=== PATIENT | male | born 1965 | race Caucasian/White ===

== ENCOUNTER 2018-01-28 18:27 | Emergency (ER) | payer MEDICAID ==
[2018-01-28] MEDS ORDERED: NS 1,000 ML IV ONE (18:34)
--- NOTE | 2018-01-28 18:43 | EDPHY ---
H & P Time Seen by Provider: 01/28/18 18:34 HPI/ROS: HPI Lower abdominal pain. 52-year-old male. By ambulance. Homeless. [facility] way [facility] bed. Developed left lower quadrant abdominal pain described as sharp and aching about 1 hr prior to arrival. It has since improved but he still states that is present at a lower level. Some radiation of the pain into his left groin area. No history of trauma. Denies any urinary complaints. No fever. He has had no associated nausea or vomiting. No diarrhea. No bloody or melenic stool. Last bowel movement was yesterday. ROS: Constitutional: No fever, no chills. No weakness. Eyes: No discharge. No changes in vision. ENT: No sore throat. No nasal congestion or rhinorrhea. Respiratory: No cough. No shortness of breath. Cardiac: No chest pain, no palpitations. Gastrointestinal: As above. Genitourinary: No hematuria. No dysuria or increased frequency with urination. No testicular pain. Musculoskeletal: No back pain. No neck pain. No myalgias or arthralgias. Skin: No rashes. Neurological: No headache. No focal weakness or altered sensation. Past medical history: Ulcerative colitis, alcohol abuse, methamphetamine abuse , homeless. Social history: As above. Smoker. Physical Exam: General Appearance: Alert, he is not in distress. This patient is responding to questions appropriately and in full sentences. This patient appears well- hydrated and well-nourished. Eyes: Pupils equal and round no pallor or injection. No lid edema, erythema or injection. Respiratory: There are no retractions, lungs are clear to auscultation with good air movement bilaterally. Cardiovascular: Regular rate and rhythm. No murmur. Gastrointestinal: Abdomen is soft with mild to moderate left lower quadrant tenderness on palpation, no masses, bowel sounds normal. No focal tenderness at McBurney's point. No Leyva sign. Neurological: Motor sensory function is grossly intact. Cranial nerves are normal. Gait is normal. Skin: Warm and dry, no rashes. Musculoskeletal: Neck is supple and nontender. Extremities are symmetrical. All joints range without pain or impingement. Psychiatric: No agitation. No depression. Database: EKG: Imaging: CT scan of abdomen and pelvis with IV contrast: Constipation. Otherwise negative study. No evidence of diverticulitis. No evidence of ureteral stone or hydronephrosis hydroureter. Results were discussed with staff radiologist Dr. Gato Archer. Procedures: Emergency department course: Triage vital signs reviewed. He is moderately hypertensive. Vital signs are otherwise normal. IV was placed by EMS. He was started on IV normal saline once here. I do not feel he requires pain medication at this time. CT imaging to evaluate for diverticulitis will be obtained. Blood in urine work ordered. 8:50 p.m., the patient is feeling better. Repeat abdominal exam is soft, nontender nondistended. I discussed the results of his blood work, urinalysis and CT scan. His urinalysis did show some blood and a few white cells. He may have had a small ureteral stone that has passed and we do not detect on CT imaging. His vital signs have remained stable throughout his emergency department course. He feels comfortable being discharged. [facility]. Follow-up and return to emergency department precautions reviewed with him. All of his questions were answered. He was discharged from the emergency department in good condition. Differential Diagnosis: The differential diagnosis on this patient includes but is not limited to diverticulitis, constipation, colitis. Ureterolithiasis, urinary tract infection, volvulus, testicular torsion unlikely. This represents a partial list of diagnoses considered. These considerations are based on history, physical exam, past history, reassessment and diagnostic testing. Smoking Status: Current every day smoker Constitutional: Initial Vital Signs Temperature (C) 36.9 C 01/28/18 18:33 Heart Rate 56 L 01/28/18 18:33 Respiratory Rate 16 01/28/18 18:33 Blood Pressure 139/93 H 01/28/18 18:33 O2 Sat (%) 97 01/28/18 18:33 O2 Delivery Mode Room Air Allergies/Adverse Reactions: No Known Allergies Allergy (Unverified 01/28/18 18:36) Home Medications: Medication Instructions Recorded NK [No Known Home Meds] 01/28/18 Medical Decision Making - Data Points Laboratory Results: Laboratory Results 01/28/18 18:30 01/28/18 18:30 01/28/18 01/28/18 01/28/18 20:05 18:30 18:30 WBC 7.60 10^3/uL 10^3/uL (3.80-9.50) RBC 4.76 10^6/uL 10^6/uL (4.40-6.38) Hgb 14.9 g/dL g/dL (13.7-17.5) Hct 44.1 % % (40.0-51.0) MCV 92.6 fL fL (81.5-99.8) MCH 31.3 pg pg (27.9-34.1) MCHC 33.8 g/dL g/dL (32.4-36.7) RDW 11.9 % % (11.5-15.2) Plt Count 234 10^3/uL 10^3/uL (150-400) MPV 9.4 fL fL (8.7-11.7) Neut % (Auto) 72.9 % % (39.3-74.2) Lymph % (Auto) 17.1 % % (15.0-45.0) [place] % (Auto) 7.4 % % (4.5-13.0) Eos % (Auto) 1.8 % % (0.6-7.6) Baso % (Auto) 0.5 % % (0.3-1.7) Nucleat RBC Rel Count 0.0 % % (0.0-0.2) Absolute Neuts (auto) 5.54 10^3/uL 10^3/uL (1.70-6.50) Absolute Lymphs (auto) 1.30 10^3/uL 10^3/uL (1.00-3.00) Absolute Monos (auto) 0.56 10^3/uL 10^3/uL (0.30-0.80) Absolute Eos (auto) 0.14 10^3/uL 10^3/uL (0.03-0.40) Absolute Basos (auto) 0.04 10^3/uL 10^3/uL (0.02-0.10) Absolute Nucleated RBC 0.00 10^3/uL 10^3/uL (0-0.01) Immature Gran % 0.3 % % (0.0-1.1) Immature Gran # 0.02 10^3/uL 10^3/uL (0.00-0.10) Sodium 136 mEq/L mEq/L (135-145) Potassium 4.4 mEq/L mEq/L (3.3-5.0) Chloride 107 mEq/L mEq/L (97-110) Carbon Dioxide 21 mEq/l L mEq/l (22-31) Anion Gap 8 mEq/L mEq/L (6-14) BUN 19 mg/dL mg/dL (7-23) Creatinine 0.9 mg/dL mg/dL (0.7-1.3) Estimated GFR > 60 Glucose 91 mg/dL mg/dL (70-100) Calcium 9.3 mg/dL mg/dL (8.5-10.4) Urine Color YELLOW Urine Appearance CLEAR Urine pH 6.0 (5.0-7.5) Ur Specific [place] 1.013 (1.002-1.030) Urine Protein NEGATIVE (NEGATIVE) Urine Ketones NEGATIVE (NEGATIVE) Urine Blood 3+ H (NEGATIVE) Urine Nitrate NEGATIVE (NEGATIVE) Urine Bilirubin NEGATIVE (NEGATIVE) Urine Urobilinogen NEGATIVE EU EU (0.2-1.0) Ur Leukocyte Esterase NEGATIVE (NEGATIVE) Urine RBC 50-182 /hpf H /hpf (0-3) Urine WBC 3-5 /hpf H /hpf (0-3) Ur Epithelial Cells TRACE /lpf /lpf (NONE-1+) Urine Bacteria TRACE /hpf H /hpf (NONE SEEN) Urine Mucus TRACE /lpf /lpf (NONE-1+) Urine Glucose NEGATIVE (NEGATIVE) Medications Given: Discontinued Medications Sodium Chloride (Ns) 1,000 mls @ 0 mls/hr IV EDNOW ONE; Wide Open PRN Reason: Protocol Stop: 01/28/18 18:35 Last Admin: 01/28/18 18:37 Dose: 1,000 mls Departure - Departure Disposition: Home, Routine, Self-Care Clinical Impression: Lower abdominal pain, Hematuria Condition: Good Instructions: Abdominal Pain (ED) Additional Instructions: Read and follow provided instructions. Follow-up with your primary care physician in 1-2 days for re-evaluation. Take medication as prescribed for nausea. You may have had a small kidney stone that has passed. Keep yourself well hydrated. Return to the emergency department for worsening symptoms or other serious concerns. Referrals: Patient,NotPresent [Unknown] - As per Instructions
[2018-01-28 18:48] LABS: PLATELET COUNT 234 10^3/uL (150-400)
[2018-01-28] MEDS ORDERED: IOPAMIDOL (ISOVUE-300) 100 ML BTL ONE (19:04)
[2018-01-28] MEDS ORDERED: ONDANSETRON 4MG PREPACK#2 BTL TAKEHOME ONE (20:52)
[2018-01-28 21:05] VITALS: BP 120/70
== END 2018-01-28 21:05 | disposition home or self-care (01) ==
LOC: EDUNIT#
DX: R10.30 Lower abdominal pain, unspecified (principal); R31.9 Hematuria, unspecified
CPT/HCPCS: Q9967

== ENCOUNTER 2018-07-14 02:48 | Emergency (ER) | payer MEDICAID ==
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
[2018-07-14] MEDS ORDERED: IBUPROFEN 800 MG TAB PO ONE (02:59)
[2018-07-14] MEDS ORDERED: ACETAMINOPHEN 500 MG TAB PO ONE (02:59)
[2018-07-14] MEDS ORDERED: AMOXICILLIN/CLAVULANATE POT 875/125 MG TAB PO ONE (05:01)
[2018-07-14 05:27] VITALS: BP 109/70
== END 2018-07-14 05:28 | disposition home or self-care (01) ==
LOC: EDUNIT#
DX: S22.32XA Fracture of one rib, left side, initial encounter for closed fracture (principal); J18.9 Pneumonia, unspecified organism; R91.1 Solitary pulmonary nodule; Z59.0 Homelessness; V00.141A Fall from scooter (nonmotorized), initial encounter

== ENCOUNTER 2018-07-21 08:54 | Emergency (ER) | payer MEDICAID ==
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
[2018-07-21] MEDS ORDERED: HYDROCODONE/APAP 5/325 TAB PO ONE (09:42)
[2018-07-21] MEDS ORDERED: IBUPROFEN 600 MG TAB PO ONE (09:42)
[2018-07-21 10:08] VITALS: BP 112/70
== END 2018-07-21 10:07 | disposition home or self-care (01) ==
DX: S22.42XA Multiple fractures of ribs, left side, initial encounter for closed fracture (principal); J18.9 Pneumonia, unspecified organism; V00.831A Fall from motorized mobility scooter, initial encounter; Z59.0 Homelessness

== ENCOUNTER 2018-07-23 11:31 | Emergency (ER) | payer MEDICAID ==
[2018-07-23 11:37] VITALS: BP 127/81
[2018-07-23] MEDS ORDERED: IBUPROFEN 600 MG TAB PO ONE (12:06)
[2018-07-23] MEDS ORDERED: HYDROCODONE/APAP 5/325 TAB PO ONE (12:06)
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
== END 2018-07-23 12:25 | disposition home or self-care (01) ==
LOC: EDUNIT#
DX: S22.32XD Fracture of one rib, left side, subsequent encounter for fracture with routine healing (principal); W19.XXXD Unspecified fall, subsequent encounter